=== PATIENT | male | born 1955 ===

== ENCOUNTER 2017-01-20 09:38 | Emergency (ER) | payer OTHER ==
[2017-01-20 09:54] VITALS: RESP 16; TEMP 98.2
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
[2017-01-20 12:16] VITALS: BP 152/85; PULSE 84
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
[2017-01-20 12:58] VITALS: O2SAT 100
== END 2017-01-20 12:15 | disposition home or self-care (01) ==
LOC: C.ER 09:38
DX: S63.501A Unspecified sprain of right wrist, initial encounter (principal); V49.49XA Driver injured in collision with other motor vehicles in traffic accident, initial encounter; Y92.410 Unspecified street and highway as the place of occurrence of the external cause